=== PATIENT | male | born 1950 | race Caucasian/White ===

== ENCOUNTER 2018-06-17 16:09 | Emergency (ER) | payer MEDICARE, OTHER ==
--- NOTE | 2018-06-17 16:59 | ED Physician Documentation ---
General Adult - HISTORIAN Historian: patient - HPI Stated Complaint: Urinary Retention Chief Complaint: General Adult Onset: hours Timing: still present Severity: moderate Further Comments: yes (Pt is a 68 yo male with c/o urinary retention after some hematuria. Pt has hx kidney stone, which presented similarly, in the past. Pt did not have dysuria prior to the episode of hematuria this am. Pt has not had lower abd pain, as from bladder distention, but not back pain with groin radiation. No fever, n/v. Pt has hx HTN.) - ROS CONST: no problems EYES/ENT: none CVS/RESP: none GI/: problems urinating MS/SKIN/LYMPH: none - PAST HX Past History: other (HTN, kidney stone) Allergies/Adverse Reactions: Allergies Allergy/AdvReac Type Severity Reaction Status Date / Time No Known Allergies Allergy Verified 06/17/18 19:35 - SOCIAL HX Smoking History: cigarettes, chew - FAMILY HX Family History: No - VITAL SIGNS Vital Signs: Vital Signs Temp Pulse Resp BP Pulse Ox 98.4 F 78 16 171/90 98 06/17/18 16:09 06/17/18 16:09 06/17/18 16:09 06/17/18 16:09 06/17/18 16:09 - REVIEWED ASSESSMENTS Nursing Assessment Reviewed: Yes Vitals Reviewed: Yes Progress - Progress Progress: large gauge cheema cath placed with numerous clot, bloody urine, returned. Catheter then stopped draining and was flushed with some more urine return, then stopped again. abd discomfort increased again in the course of visit and pt appeared to void around the catherer which was then removed. Transfer to [facility]. Dr. Ulloa. General Adult Physical Exam - PHYSICAL EXAM GENERAL APPEARANCE: moderate distress EENT: pharynx normal NECK: normal inspection, supple RESPIRATORY: no resp distress, chest non-tender, breath sounds normal CVS: reg rate & rhythm, heart sounds normal ABDOMEN: soft, no organomegaly, normal bowel sounds, other (lower abd pain c/w urinary retention.) BACK: normal inspection, no CVA tenderness SKIN: warm/dry, normal color EXTREMITIES: non-tender, normal range of motion, no evidence of injury NEURO: oriented X3, motor nml, sensation nml Discharge Clincal Impression: Urinary retention, hematuria, Clot retention of urine Condition: Stable Disposition: XF [facility] HOSP Decision to Admit: NO Decision Time: 19:37
[2018-06-17 17:33] LABS: APPEARANCE,URINE TURBID (CLEAR); COLOR,URINE RED (YELLOW)
[2018-06-17 17:34] LABS: OCCULT BLOOD,URINE 3+ (NEGATIVE); PH URINE 6.5 (5.0 - 8.0)
[2018-06-17 19:03] LABS: MEAN CORPUSCULAR HEMOGLOBIN 30.9 pg (28.0-34.0)
[2018-06-17 19:04] LABS: MONOCYTES % 5 % (0-11); SEGMENTED NEUTROPHILS % 85 % (39-79); eGFR (Non-African) 56
[2018-06-17 20:08] VITALS: BP 167/106
== END 2018-06-17 19:55 | disposition short-term general hospital (02) ==
LOC: ED 16:09
DX: R33.8 Other retention of urine (principal); R31.9 Hematuria, unspecified
CPT/HCPCS: 36415; 80053; 81002; 85025; 87086; 99285; S1016